=== PATIENT | female | born 1935 | race Caucasian/White ===

== ENCOUNTER 2020-04-06 03:42 | Inpatient (IN) | payer MEDICARE, OTHER ==
[2020-04-06 05:09] LABS: #Basophils 0.1 thou/uL (0.0-0.2); #Eosinphils 0.3 thou/uL (0.0-0.7); #Lymphocytes 1.7 thou/uL (1.20-3.40); #Monocytes 0.7 thou/uL (0.11-0.59); #Neutrophils 7.6 thou/uL (1.40-6.50); %Basophils 0.7 % (0.0-1.0); %Lymphocytes 16.6 % (21.0-51.0); %Monocytes 7.1 % (0.0-10.0); %Neutrophils 72.6 % (42.0-75.0); Hemoglobin 12.3 g/dL (12.0-16.0); Mean Corpuscular HGB CONC 33.1 g/dL (32.0-36.0); Mean Corpuscular Hemoglobin 34.1 pg (27.0-31.0); Mean Platelet Volume 8.9 fL (7.4-10.4); Platelet Count 222 thou/uL (130-400); RBC Distribution Width 13.4 % (11.5-14.5); Red Blood Cell (RBC) Count 3.62 mill/uL (4.20-5.40); White Blood Cell (WBC) Count 10.4 thou/uL (4.8-10.8)
[2020-04-06] MEDS ORDERED: methylPREDNISolone Sod Succ/PF 125 MG/2 ML VIAL ONE (05:13)
[2020-04-06 05:41] LABS: ALT (SGPT) 20 U/L (8-55); AST (SGOT) 34 U/L (5-34); Albumin 3.6 g/dL (3.4-4.8); Alkaline Phosphatase 96 U/L (40-110); Anion Gap 14 mmol/L (10-20); BUN (Urea Nitrogen) 33 mg/dL (9.8-20.1); Bilirubin, Total 0.4 mg/dL (0.2-1.2); Calc. Creatinine Clearance 0 mL/min (70-130); Calcium 8.9 mg/dL (7.8-10.44); Carbon Dioxide 19 mmol/L (23-31); Chloride 109 mmol/L (98-107); Estimated GFR-MDRD 27; Globulin 2.8 g/dL (2.4-3.5); Glucose 118 mg/dL (83-110); Potassium 6.2 mmol/L (3.5-5.1); Protein, Total 6.4 g/dL (6.0-8.3); Sodium 136 mmol/L (136-145)
[2020-04-06] MEDS ORDERED: Insulin Regular 300 UNITS/3 ML VIAL ONE (06:00)
[2020-04-06] MEDS ORDERED: Sodium Bicarb 50 MEQ/50 ML Abboject 8.4% SYRINGE ONE ×2 (06:00→06:02)
[2020-04-06] MEDS ORDERED: Aspirin Chewable 81 MG TAB ONE (06:00)
[2020-04-06] MEDS ORDERED: Calcium Gluc 4.6 MEQ/10 ML (100 MG/ML) ONE (06:00)
[2020-04-06] MEDS ORDERED: Furosemide 40 MG/4 ML VIAL ONE (06:01)
[2020-04-06] MEDS ORDERED: Dextrose 50% Abboject 50 ML SYRINGE ONE (06:01)
[2020-04-06] MEDS ORDERED: Calcium Chloride 1 GM/10 ML Abboject SYRINGE ONE (06:02)
[2020-04-06 06:05] LABS: CKMB 1.3 ng/mL (0-6.6)
[2020-04-06] MEDS ORDERED: Albuterol Sulfate 1.25 MG/3 ML NEB ONE ×2 (06:06→06:07)
--- NOTE | 2020-04-06 07:55 | RAD ---
RADIOGRAPH CHEST 1 VIEW: DATE: 04/06/2020 TIME: 4:36 AM HISTORY: 84-year-old female with sudden onset dyspnea COMPARISON: 07/14/2007 FINDINGS: New finding of small bilateral pleural effusions. Haziness at bilateral lung bases. Prominent interst itial markings throughout the rest of the lungs, minimally greater than prior study. No pneumothorax. New left subclavian dual lead pacemaker. No cardiomegaly. IMPRESSION: Small bilateral pleural effusions.
[2020-04-06 08:12] LABS: Anion Gap 13 mmol/L (10-20); BUN (Urea Nitrogen) 31 mg/dL (9.8-20.1); Calc. Creatinine Clearance 0 mL/min (70-130); Carbon Dioxide 20 mmol/L (23-31); Chloride 110 mmol/L (98-107); Estimated GFR-MDRD 27; Glucose 123 mg/dL (83-110); Sodium 138 mmol/L (136-145)
[2020-04-06 08:17] LABS: Troponin I 0.069 ng/mL (< 0.028)
[2020-04-06] MEDS ORDERED: Acetaminophen 325 MG TAB PO PRN (09:00)
[2020-04-06 10:44] VITALS: BMI 23.4
[2020-04-06] MEDS: Amlodipine 10 MG TAB PO SCH (11:19)
[2020-04-06] MEDS: hydrALAZINE 25 MG TAB PO SCH ×2 (11:19→22:19)
[2020-04-06] MEDS: Heparin 5,000 UNITS/ML VIAL SC SCH ×3 (11:20→22:19)
[2020-04-06] MEDS ORDERED: Dextrose 50% Abboject 50 ML SYRINGE SLOW IVP PRN (11:28)
[2020-04-06] MEDS ORDERED: Dextrose 5% in Water 1,000 ML IV PRN (11:28)
[2020-04-06 11:53] LABS: Troponin I 0.047 ng/mL (< 0.028)
--- NOTE | 2020-04-06 12:10 | HP ---
CHIEF COMPLAINT: Shortness of breath. HISTORY OF PRESENT ILLNESS: The patient is an 84-year-old female with past medical history of sinus bradycardia, status post pacemaker placement, COPD with emphysema, GERD, esophageal stricture, hypertension, and diabetes mellitus type 2, who uses oxygen intermittently at home for COPD. The patient was staying with her daughter for the last few days. She started experiencing shortness of breath earlier today. The patient has a chronic cough that has not changed and she did not complain of any fever or chest pain. Her daughter reported that the patient became short of breath while lying down in bed and the episode was sudden. In the ER, she was found to be hypoxic and required 3 L of oxygen to maintain oxygen saturations greater than 90%. Her chest x-ray revealed some vascular congestion with small effusions. The patient does report chronic edema of her lower extremities. She denies any history of congestive heart failure. Her laboratory studies revealed elevated BNP and hyperkalemia. She was given Lasix in the ER. REVIEW OF SYSTEMS: Negative except as noted in HPI. PAST MEDICAL HISTORY: As noted above. PAST SURGICAL HISTORY: Includes; 1. Hysterectomy. 2. Pacemaker placement. 3. Cholecystectomy. 4. Hernia repair. 5. Cataract surgery. 6. Skin cancer removal. SOCIAL HISTORY: The patient is a current smoker and has been so for 70 years. She denies illicit drug use or alcohol use. ALLERGIES: THE PATIENT IS ALLERGIC TO CIPROFLOXACIN, CODEINE, AND IODINE. PHYSICAL EXAMINATION: GENERAL: The patient is alert and oriented. HEENT: Head; normocephalic, atraumatic. Extraocular muscles intact. NECK: Supple. CHEST: Auscultation reveals crackles at the bases bilaterally. CARDIOVASCULAR: Revealed normal S1, S2. No murmurs, rubs, or gallops. ABDOMEN: Soft, nontender, nondistended. EXTREMITIES: Revealed +1 pitting edema. ASSESSMENT: 1. New-onset congestive heart failure. 2. Chronic COPD. 3. [id number] respiratory failure with hypoxia. 4. Hyperkalemia. 5. Elevated creatinine level, which could represent acute kidney injury. No baseline to compare. 6. Elevated troponin. PLAN: The patient will be placed in telemetry. We will initiate management for CHF with low-salt diet, 1800 mL fluid restriction, strict intake and output, Bumex 1 mg IV twice daily. We will check echocardiogram. We will continue carvedilol and hold lisinopril due to the elevated creatinine level and hyperkalemia. Her elevated troponin level could be related to her CHF and demand ischemia. The patient is denying any chest pain. We will follow echocardiogram results to assess any wall motion abnormalities and the degree of her ejection fraction. Her COPD appears to be stable and chronic and we will continue with nebulizer treatments. Heparin for DVT prophylaxis. PT and OT evaluation. Job ID: [id number]
[2020-04-06] MEDS: cloNIDine 0.1 MG TAB PO SCH ×2 (12:16→22:18)
[2020-04-06] MEDS: Bumetanide 1 MG/4 ML VIAL IVP SCH (14:51)
[2020-04-06 16:30] LABS: SARS-CoV-2 MS2 Positive; SARS-CoV-2 N Gene Negative; SARS-CoV-2 S Gene Negative; SARS-CoV-2 by NAA Not Detected (NotDetected); SARS-CoV-2 orf1ab Negative
[2020-04-06] MEDS: Albuterol 200 PUFF (6.7GM INHALER) INH SCH ×3 (16:56→22:22)
[2020-04-06] MEDS: Carvedilol 25 MG TAB PO SCH (17:33)
[2020-04-06] MEDS: HumaLOG 300 UNITS/3 ML VIAL SC PRN (17:34)
[2020-04-06] MEDS ORDERED: Simvastatin 20 MG TAB PO SCH (21:00)
[2020-04-06] MEDS: Melatonin 3 MG TAB PO PRN (22:19)
[2020-04-06] MEDS: Atorvastatin Calcium 10 MG TAB PO SCH (22:19)
[2020-04-07] MEDS: Albuterol 200 PUFF (6.7GM INHALER) INH SCH ×7 (01:51→23:33)
[2020-04-07 04:31] LABS: #Lymphocytes 1.3 thou/uL (1.20-3.40); #Monocytes 0.5 thou/uL (0.11-0.59); #Neutrophils 14.5 thou/uL (1.40-6.50); %Basophils 0.1 % (0.0-1.0); %Eosinophils 0.1 % (0.0-10.0); %Lymphocytes 8.1 % (21.0-51.0); %Monocytes 3.1 % (0.0-10.0); %Neutrophils 88.7 % (42.0-75.0); Hemoglobin 10.4 g/dL (12.0-16.0); Mean Corpuscular HGB CONC 32.9 g/dL (32.0-36.0); Mean Corpuscular Hemoglobin 34.1 pg (27.0-31.0); Mean Platelet Volume 8.8 fL (7.4-10.4); Platelet Count 199 thou/uL (130-400); RBC Distribution Width 13.4 % (11.5-14.5); Red Blood Cell (RBC) Count 3.05 mill/uL (4.20-5.40); White Blood Cell (WBC) Count 16.4 thou/uL (4.8-10.8)
[2020-04-07 05:35] LABS: Anion Gap 13 mmol/L (10-20); BUN (Urea Nitrogen) 32 mg/dL (9.8-20.1); Calc. Creatinine Clearance 22 mL/min (70-130); Calcium 8.3 mg/dL (7.8-10.44); Carbon Dioxide 21 mmol/L (23-31); Chloride 108 mmol/L (98-107); Estimated GFR-MDRD 27; Glucose 162 mg/dL (83-110); Potassium 5.3 mmol/L (3.5-5.1); Sodium 137 mmol/L (136-145)
[2020-04-07] MEDS: Levothyroxine Sodium 75 MCG TAB PO SCH (06:22)
[2020-04-07] MEDS: HumaLOG 300 UNITS/3 ML VIAL SC PRN ×2 (06:22→11:25)
[2020-04-07] MEDS: Bumetanide 1 MG/4 ML VIAL IVP SCH ×2 (07:46→15:00)
[2020-04-07] MEDS ORDERED: FLU VACC QS2020-21(65YR UP)/PF 240 MCG/0.7 ML SYRINGE IM ONE (09:00)
[2020-04-07] MEDS: Amlodipine 10 MG TAB PO SCH (10:40)
[2020-04-07] MEDS: cloNIDine 0.1 MG TAB PO SCH (10:40)
[2020-04-07] MEDS: Carvedilol 25 MG TAB PO SCH ×2 (10:40→17:20)
[2020-04-07] MEDS: hydrALAZINE 25 MG TAB PO SCH ×3 (10:41→21:23)
[2020-04-07] MEDS: Heparin 5,000 UNITS/ML VIAL SC SCH ×3 (10:41→21:22)
--- NOTE | 2020-04-07 15:16 | PDOC.HOSPP ---
- Subjective Encounter Date: 04/07/20 Encounter Time: 15:15 Subjective: f/u for CHF exacerbation with EF 60-65% on Bumex IV. Receiving O2 @ 3L/min NC. - Objective Vital Signs & Weight: Vital Signs (12 hours) Temp Pulse Resp BP BP Pulse Ox 04/07/20 11:16 97.8 F 66 20 137/60 96 04/07/20 10:41 70 04/07/20 10:40 70 04/07/20 07:24 98 F 70 20 138/60 96 04/07/20 04:00 97.5 F L 69 16 117/56 L 95 Weight Admit Weight 132 lb 6 oz Weight 132 lb 6 oz I&O: 04/06/20 04/07/20 04/08/20 06:59 06:59 06:59 Intake Total 600 560 Output Total 750 700 Balance -150 -140 Result Diagrams: 04/07/20 04:08 04/07/20 04:08 Additional Labs: Accuchecks 04/07/20 04/07/20 04/06/20 11:24 05:59 22:19 POC Glucose 158 H 172 H 156 H 04/06/20 17:32 POC Glucose 184 H Laboratory Tests 04/06/20 04/06/20 04/06/20 04:40 04:40 04:40 WBC Hgb Potassium 6.2 H Creatinine 1.78 H Troponin I 0.079 H B-Natriuretic Peptide 1226.5 H SARS-CoV-2 (PCR) 04/06/20 04/06/20 04/06/20 04:40 06:47 07:47 WBC 10.4 Hgb 12.3 Potassium Creatinine Troponin I 0.069 H B-Natriuretic Peptide SARS-CoV-2 (PCR) Not Detected 04/06/20 04/06/20 07:47 11:00 WBC Hgb Potassium 5.0 Creatinine 1.77 H Troponin I 0.047 H B-Natriuretic Peptide SARS-CoV-2 (PCR) EKG Reviewed by me: Yes (Tele - SR) Hospitalist ROS - Medication Medications: Active Medications Generic Name Dose Route Start Last Admin Trade Name Freq PRN Reason Stop Dose Admin Albuterol Sulfate 2 puff 04/06/20 14:30 04/07/20 14:07 Albuterol 200 Puff (6.7gm Inhaler) INH 04/12/20 18:00 Not Given [id number] ERICA Amlodipine Besylate 10 mg 04/06/20 09:00 04/07/20 10:40 Amlodipine 10 Mg Tab PO 10 mg DAILY ERICA Administration Atorvastatin Calcium 10 mg 04/06/20 21:00 04/06/20 22:19 Atorvastatin Calcium 10 Mg Tab PO 10 mg HS ERICA Administration Bumetanide 1 mg 04/06/20 14:00 04/07/20 07:46 Bumetanide 1 Mg/4 Ml Vial IVP 1 mg 0600,1400 ERICA Administration Carvedilol 25 mg 04/06/20 17:00 04/07/20 10:40 Carvedilol 25 Mg Tab PO 25 mg BID-WM ERICA Administration Clonidine 0.1 mg 04/06/20 09:00 04/07/20 10:40 Clonidine 0.1 Mg Tab PO 0.1 mg BID ERICA Administration Heparin Sodium (Porcine) 5,000 units 04/06/20 09:00 04/07/20 10:41 Heparin 5,000 Units/Ml Vial SC 5,000 units TID ERICA Administration Hydralazine HCl 25 mg 04/06/20 09:00 04/07/20 10:41 Hydralazine 25 Mg Tab PO 25 mg BID ERICA Administration Insulin Human Lispro 0 units 04/06/20 11:28 04/07/20 11:25 Humalog 300 Units/3 Ml Vial SC 2 unit .MODERATE SLIDING SC PRN Administration Moderate Correctional Scale Levothyroxine Sodium 75 mcg 04/07/20 06:00 04/07/20 06:22 Levothyroxine Sodium 75 Mcg Tab PO 75 mcg 0600 ERICA Administration Melatonin 3 mg 04/06/20 21:31 04/06/20 22:19 Melatonin 3 Mg Tab PO 3 mg HS PRN Administration Insomnia Sodium Chloride 10 ml 04/06/20 21:00 04/07/20 10:41 Flush - Normal Saline 10 Ml Syringe IVF 10 ml Q12HR ERICA Administration - Exam General Appearance: NAD, awake alert Eye: PERRL, anicteric sclera ENT: normocephalic atraumatic, no oropharyngeal lesions Neck: supple, symmetric, no JVD, no thyromegaly, no lymphadenopathy Heart: RRR, no gallops, no rubs, normal peripheral pulses Heart - other findings: S1, S2 Gastrointestinal: soft, non-tender, non-distended, normal bowel sounds, no palpable masses Extremities: no cyanosis, no clubbing, 1+ LE edema Skin: normal turgor, no lesions Neurological: cranial nerve grossly intact, no new deficit Musculoskeletal: normal tone, generalized weakness Psychiatric: normal affect, A&O x 3 Hosp A/P (1) Acute exacerbation of CHF (congestive heart failure) Code(s): I50.9 - HEART FAILURE, UNSPECIFIED Status: Acute Qualifiers: Heart failure type: diastolic Qualified Code(s): I50.33 - Acute on chronic diastolic (congestive) heart failure Plan: Continue Bumex IV, serial I/O's, daily weight, med mgmt (2) Chronic respiratory failure with hypoxia Code(s): J96.11 - CHRONIC RESPIRATORY FAILURE WITH HYPOXIA Status: Chronic Plan: Continue O2 @ 3L/min NC (3) Hyperkalemia Code(s): E87.5 - HYPERKALEMIA Status: Acute Plan: Improved, continue Bumex, serial K+ monitoring (4) Acute kidney injury superimposed on CKD Code(s): N17.9 - ACUTE KIDNEY FAILURE, UNSPECIFIED; N18.9 - CHRONIC KIDNEY DISEASE, UNSPECIFIED Status: Acute Plan: Avoid nephrotoxic meds and limit contrast exposure, serial creatinine (5) Type 2 myocardial infarction Code(s): I21.A1 - MYOCARDIAL INFARCTION TYPE 2 Status: Acute Plan: Suspect due to demand ischemia, continue med mgmt (6) HTN (hypertension) Code(s): I10 - ESSENTIAL (PRIMARY) HYPERTENSION Status: Chronic Qualifiers: Hypertension type: essential hypertension Qualified Code(s): I10 - Essential (primary) hypertension Plan: Continue home BP regimen, serial BP monitoring (7) Tobacco abuse Code(s): Z72.0 - TOBACCO USE Status: Chronic Plan: Smoking cessation resources (8) DM II (diabetes mellitus, type II), controlled Code(s): E11.9 - TYPE 2 DIABETES MELLITUS WITHOUT COMPLICATIONS Status: Acute - Plan plan discussed w/ family, PT/OT, social work manager, respiratory therapy, out of bed/ambulate, DVT proph w/SCDs Stable currently Continue Bumex IV another 24h OOB with PT Resume home BP regimen ASA 81mg daily AM lab: BMP, CBC Likely home in 24h
[2020-04-07] MEDS ORDERED: Aspirin 81 mg Enteric Coated Tablet PO SCH (16:00)
[2020-04-07] MEDS: Metoclopramide HCl 10 MG TAB PO SCH ×2 (17:20→21:21)
[2020-04-07] MEDS: Mirtazapine 30 MG TAB PO SCH (21:21)
[2020-04-07] MEDS: cloNIDine 0.2 MG TAB PO SCH (21:21)
[2020-04-07] MEDS: Melatonin 3 MG TAB PO PRN (21:22)
[2020-04-07] MEDS: Atorvastatin Calcium 10 MG TAB PO SCH (21:22)
[2020-04-07] MEDS ORDERED: Sodium Chloride 0.9% 250 ML IV SCH (23:45)
[2020-04-08 01:01] LABS: Hemoglobin 10.8 g/dL (12.0-16.0)
[2020-04-08] MEDS ORDERED: methylPREDNISolone Sod Succ/PF 125 MG/2 ML VIAL ONE (01:21)
[2020-04-08] MEDS ORDERED: Furosemide 20 MG/2 ML VIAL ONE (03:19)
[2020-04-08 06:31] LABS: Anion Gap 15 mmol/L (10-20); BUN (Urea Nitrogen) 39 mg/dL (9.8-20.1); Calc. Creatinine Clearance 23 mL/min (70-130); Calcium 8.4 mg/dL (7.8-10.44); Carbon Dioxide 21 mmol/L (23-31); Chloride 104 mmol/L (98-107); Estimated GFR-MDRD 27; Glucose 173 mg/dL (83-110); Potassium 5.2 mmol/L (3.5-5.1); Sodium 135 mmol/L (136-145)
[2020-04-08] MEDS: Bumetanide 1 MG/4 ML VIAL IVP SCH ×2 (06:44→14:27)
[2020-04-08] MEDS: HumaLOG 300 UNITS/3 ML VIAL SC PRN ×2 (06:44→12:32)
[2020-04-08] MEDS: Levothyroxine Sodium 75 MCG TAB PO SCH (06:44)
[2020-04-08 06:47] LABS: #Eosinphils 0.1 thou/uL (0.0-0.7); #Lymphocytes 1.5 thou/uL (1.20-3.40); #Monocytes 0.3 thou/uL (0.11-0.59); #Neutrophils 11.5 thou/uL (1.40-6.50); %Basophils 0.1 % (0.0-1.0); %Eosinophils 0.4 % (0.0-10.0); %Lymphocytes 10.9 % (21.0-51.0); %Neutrophils 86.6 % (42.0-75.0); Mean Corpuscular HGB CONC 32.2 g/dL (32.0-36.0); Mean Corpuscular Hemoglobin 33.5 pg (27.0-31.0); Mean Platelet Volume 9.9 fL (7.4-10.4); Platelet Count 188 thou/uL (130-400); RBC Distribution Width 13.6 % (11.5-14.5); Red Blood Cell (RBC) Count 3.57 mill/uL (4.20-5.40); White Blood Cell (WBC) Count 13.3 thou/uL (4.8-10.8)
[2020-04-08] MEDS: Albuterol 200 PUFF (6.7GM INHALER) INH SCH ×5 (07:00→22:15)
[2020-04-08 07:04] LABS: Chloride 105 mmol/L (98-107); Glucose 114 mg/dL (83-110); Sodium 135 mmol/L (136-145)
[2020-04-08 07:55] LABS: Anion Gap 14 mmol/L (10-20); BUN (Urea Nitrogen) 36 mg/dL (9.8-20.1); Calc. Creatinine Clearance 23 mL/min (70-130); Carbon Dioxide 21 mmol/L (23-31); Estimated GFR-MDRD 28; Magnesium 1.7 mg/dL (1.6-2.6)
--- NOTE | 2020-04-08 08:07 | RAD ---
CHEST 1 VIEW: Date: 04/08/2020 INDICATION: History of chest pain. COMPARISON: Prior exam dated 04/06/2020. FINDINGS: Dual lead pacemaker is unchanged. Mild cardiomegaly persists. Bilateral infrahilar air space opacitie s persist. Small right and tiny left pleural effusions are similar appearing. No pneumothorax is evid ent. IMPRESSION: Stable examination to the prior dated 04/06/2020. POS: BH
[2020-04-08 08:15] LABS: Lactic Acid 0.9 mmol/L (0.5-2.2)
[2020-04-08] MEDS: Estradiol 1 MG TAB PO SCH (08:48)
[2020-04-08] MEDS: Alogliptin 6.25 MG TAB PO SCH (08:51)
[2020-04-08] MEDS: Metoclopramide HCl 10 MG TAB PO SCH ×4 (08:53→20:43)
[2020-04-08] MEDS: Heparin 5,000 UNITS/ML VIAL SC SCH ×3 (08:54→20:43)
[2020-04-08] MEDS ORDERED: Lisinopril 20 MG TAB PO SCH (09:00)
[2020-04-08] MEDS: Carvedilol 25 MG TAB PO SCH ×2 (09:18→17:56)
[2020-04-08 10:49] LABS: CKMB 1.1 ng/mL (0-6.6)
--- NOTE | 2020-04-08 11:37 | PDOC.HOSPP ---
- Subjective Encounter Date: 04/08/20 Encounter Time: 11:15 Subjective: f/u for CHF exacerbation on IV Bumex. Feels better overall but had episode of hypotension overnight receiving NS bolus 500ml total. - Objective Vital Signs & Weight: Vital Signs (12 hours) Temp Pulse Resp BP BP Pulse Ox 04/08/20 08:00 98 F 65 21 H 117/57 L 92 L 04/08/20 05:36 97.7 F 95 16 113/56 L 97 04/08/20 03:13 64 143/60 H 04/08/20 02:03 91/48 L 04/08/20 01:12 98/50 L 04/08/20 00:43 82 106/55 L 04/07/20 23:41 97.8 F 65 16 90/44 L 92 L Weight Admit Weight 132 lb 6 oz Weight 132 lb 6 oz I&O: 04/07/20 04/08/20 04/09/20 06:59 06:59 06:59 Intake Total 600 1865 360 Output Total 750 2200 Balance -150 -335 360 Result Diagrams: 04/08/20 05:18 04/08/20 03:32 Additional Labs: Accuchecks 04/08/20 04/08/20 04/07/20 10:49 05:56 21:07 POC Glucose 287 H 185 H 155 H Laboratory Tests 04/06/20 04/06/20 04/06/20 04:40 04:40 04:40 WBC Hgb Potassium 6.2 H BUN Creatinine 1.78 H Magnesium Troponin I 0.079 H B-Natriuretic Peptide 1226.5 H SARS-CoV-2 (PCR) 04/06/20 04/06/20 04/06/20 04:40 06:47 07:47 WBC 10.4 Hgb 12.3 Potassium BUN Creatinine Magnesium Troponin I 0.069 H B-Natriuretic Peptide SARS-CoV-2 (PCR) Not Detected 04/06/20 04/06/20 04/07/20 07:47 11:00 04:08 WBC 16.4 H Hgb 10.4 L Potassium 5.0 BUN Creatinine 1.77 H Magnesium Troponin I 0.047 H B-Natriuretic Peptide SARS-CoV-2 (PCR) 04/08/20 04/08/20 04/08/20 00:56 00:56 00:56 WBC Hgb 10.8 L Potassium 5.0 BUN 36 H Creatinine 1.75 H Magnesium 1.7 Troponin I 0.056 H B-Natriuretic Peptide SARS-CoV-2 (PCR) Radiology Reviewed by me: Yes (PCXR - patchy infiltrates, chronic changes) EKG Reviewed by me: Yes (Tele - SR) Hospitalist ROS - Medication Medications: Active Medications Generic Name Dose Route Start Last Admin Trade Name Freq PRN Reason Stop Dose Admin Albuterol Sulfate 2 puff 04/06/20 14:30 04/08/20 10:53 Albuterol 200 Puff (6.7gm Inhaler) INH 04/12/20 18:00 2 puff [id number] ERICA Administration Alogliptin Benzoate 6.25 mg 04/08/20 09:00 04/08/20 08:51 Alogliptin 6.25 Mg Tab PO 6.25 mg DAILY ERICA Administration Amlodipine Besylate 10 mg 04/06/20 09:00 04/07/20 10:40 Amlodipine 10 Mg Tab PO 10 mg DAILY ERICA Administration Atorvastatin Calcium 10 mg 04/06/20 21:00 04/07/20 21:22 Atorvastatin Calcium 10 Mg Tab PO 10 mg HS ERICA Administration Bumetanide 1 mg 04/06/20 14:00 04/08/20 06:44 Bumetanide 1 Mg/4 Ml Vial IVP 1 mg 0600,1400 ERICA Administration Carvedilol 25 mg 04/06/20 17:00 04/08/20 09:18 Carvedilol 25 Mg Tab PO 25 mg BID-WM ERICA Administration Clonidine 0.2 mg 04/07/20 21:00 04/07/20 21:21 Clonidine 0.2 Mg Tab PO 0.2 mg BID ERICA Administration Estradiol 0.5 mg 04/08/20 09:00 04/08/20 08:48 Estradiol 1 Mg Tab PO 0.5 mg DAILY ERICA Administration Heparin Sodium (Porcine) 5,000 units 04/06/20 09:00 04/08/20 08:54 Heparin 5,000 Units/Ml Vial SC 5,000 units TID ERICA Administration Hydralazine HCl 25 mg 04/07/20 21:00 04/07/20 21:23 Hydralazine 25 Mg Tab PO Not Given BID ERICA Insulin Human Lispro 0 units 04/06/20 11:28 04/08/20 06:44 Humalog 300 Units/3 Ml Vial SC 2 unit .MODERATE SLIDING SC PRN Administration Moderate Correctional Scale Levothyroxine Sodium 75 mcg 04/07/20 06:00 04/08/20 06:44 Levothyroxine Sodium 75 Mcg Tab PO 75 mcg 0600 ERICA Administration Metoclopramide HCl 5 mg 04/07/20 16:30 04/08/20 08:53 Metoclopramide Hcl 10 Mg Tab PO 5 mg 0730,1130,1630,2100 ERICA Administration Mirtazapine 30 mg 04/07/20 21:00 04/07/20 21:21 Mirtazapine 30 Mg Tab PO 30 mg HS ERICA Administration Sodium Chloride 10 ml 04/06/20 21:00 04/07/20 21:21 Flush - Normal Saline 10 Ml Syringe IVF 10 ml Q12HR ERICA Administration - Exam General Appearance: NAD, awake alert Eye: PERRL, anicteric sclera ENT: normocephalic atraumatic, no oropharyngeal lesions Neck: supple, symmetric, no JVD, no thyromegaly, no lymphadenopathy Heart: RRR, no gallops, no rubs, normal peripheral pulses Heart - other findings: S1, S2 Respiratory: no tachypnea Respiratory - other findings: occ rhonchi, diminished bilat, mild exp wheeze Gastrointestinal: soft, non-tender, non-distended, normal bowel sounds, no palpable masses Extremities: no cyanosis, no clubbing, no edema Skin: normal turgor Neurological: cranial nerve grossly intact, no new deficit Musculoskeletal: normal tone, generalized weakness Psychiatric: normal affect, A&O x 3 Hosp A/P (1) Acute exacerbation of CHF (congestive heart failure) Code(s): I50.9 - HEART FAILURE, UNSPECIFIED Status: Acute Qualifiers: Heart failure type: diastolic Qualified Code(s): I50.33 - Acute on chronic diastolic (congestive) heart failure Plan: Continue Bumex IV another 24h and monitor I/O's, daily weight (2) Chronic respiratory failure with hypoxia Code(s): J96.11 - CHRONIC RESPIRATORY FAILURE WITH HYPOXIA Status: Chronic Plan: Continue O2 supplementation, remains on home O2 (3) Hyperkalemia Code(s): E87.5 - HYPERKALEMIA Status: Acute Plan: Mild elevation, continue Bumex IV, serial monitoring (4) Acute kidney injury superimposed on CKD Code(s): N17.9 - ACUTE KIDNEY FAILURE, UNSPECIFIED; N18.9 - CHRONIC KIDNEY DISEASE, UNSPECIFIED Status: Acute Plan: Avoid nephrotoxic meds and limit contrast exposure (5) Type 2 myocardial infarction Code(s): I21.A1 - MYOCARDIAL INFARCTION TYPE 2 Status: Acute (6) HTN (hypertension) Code(s): I10 - ESSENTIAL (PRIMARY) HYPERTENSION Status: Chronic Qualifiers: Hypertension type: essential hypertension Qualified Code(s): I10 - Essential (primary) hypertension (7) Tobacco abuse Code(s): Z72.0 - TOBACCO USE Status: Chronic (8) DM II (diabetes mellitus, type II), controlled Code(s): E11.9 - TYPE 2 DIABETES MELLITUS WITHOUT COMPLICATIONS Status: Acute - Plan plan discussed w/ family, continue antibiotics Stable currently Continue Bumex IV another 24h OOB with PT Resume home BP regimen ASA 81mg daily Monitor BP trend AM lab: BMP, CBC Likely home in 24h
[2020-04-08] MEDS: hydrALAZINE 25 MG TAB PO SCH (12:20)
[2020-04-08] MEDS: cloNIDine 0.2 MG TAB PO SCH (12:20)
[2020-04-08] MEDS: Amlodipine 10 MG TAB PO SCH (12:20)
--- NOTE | 2020-04-08 18:02 | EKG ---
Test Reason : STAT Blood Pressure : / mmHG Vent. Rate : 065 BPM Atrial Rate : 039 BPM P-R Int : 000 ms QRS Dur : 150 ms QT Int : 440 ms P-R-T Axes : 000 -86 066 degrees QTc Int : 457 ms Ventricular-paced rhythm Abnormal ECG When compared with ECG of 06-APR-2020 03:55, (Unconfirmed) Electronic ventricular pacemaker has replaced Sinus rhythm Confirmed by DR. Sanjay ONEAL (3) on 04/08/2020 6:02:20 PM Referred By: ROBY Confirmed By:DR. Sanjay ONEAL
[2020-04-08] MEDS: Atorvastatin Calcium 10 MG TAB PO SCH (20:42)
[2020-04-08] MEDS: Mirtazapine 30 MG TAB PO SCH (20:43)
[2020-04-08] MEDS ORDERED: Amlodipine 10 MG TAB PO SCH (21:00)
[2020-04-08] MEDS ORDERED: hydrALAZINE 25 MG TAB PO SCH (21:00)
[2020-04-08] MEDS ORDERED: cloNIDine 0.2 MG TAB PO SCH (21:00)
[2020-04-09] MEDS ORDERED: Melatonin 3 MG TAB PO PRN (00:18)
[2020-04-09] MEDS: Albuterol 200 PUFF (6.7GM INHALER) INH SCH ×3 (02:14→10:50)
[2020-04-09 04:36] VITALS: TEMP 97.9
[2020-04-09 05:25] LABS: #Monocytes 0.8 thou/uL (0.11-0.59); #Neutrophils 10.4 thou/uL (1.40-6.50); %Eosinophils 0.2 % (0.0-10.0); %Monocytes 6.2 % (0.0-10.0); %Neutrophils 78.5 % (42.0-75.0); Hemoglobin 10.7 g/dL (12.0-16.0); Mean Corpuscular HGB CONC 34.2 g/dL (32.0-36.0); Mean Corpuscular Hemoglobin 35.1 pg (27.0-31.0); Mean Platelet Volume 8.9 fL (7.4-10.4); Platelet Count 199 thou/uL (130-400); RBC Distribution Width 12.9 % (11.5-14.5); Red Blood Cell (RBC) Count 3.04 mill/uL (4.20-5.40); White Blood Cell (WBC) Count 13.3 thou/uL (4.8-10.8)
[2020-04-09 05:43] LABS: Anion Gap 12 mmol/L (10-20); BUN (Urea Nitrogen) 42 mg/dL (9.8-20.1); Calc. Creatinine Clearance 22 mL/min (70-130); Calcium 8.6 mg/dL (7.8-10.44); Carbon Dioxide 28 mmol/L (23-31); Chloride 101 mmol/L (98-107); Estimated GFR-MDRD 26; Glucose 140 mg/dL (83-110); Potassium 4.6 mmol/L (3.5-5.1); Sodium 136 mmol/L (136-145)
[2020-04-09] MEDS: Levothyroxine Sodium 75 MCG TAB PO SCH (07:46)
[2020-04-09] MEDS: Bumetanide 1 MG/4 ML VIAL IVP SCH (07:46)
[2020-04-09] MEDS: Metoclopramide HCl 10 MG TAB PO SCH ×2 (08:21→11:05)
[2020-04-09] MEDS: Estradiol 1 MG TAB PO SCH (08:22)
[2020-04-09] MEDS: Alogliptin 6.25 MG TAB PO SCH (08:22)
[2020-04-09] MEDS: Heparin 5,000 UNITS/ML VIAL SC SCH (08:23)
[2020-04-09] MEDS: Carvedilol 25 MG TAB PO SCH (08:23)
[2020-04-09] MEDS: HumaLOG 300 UNITS/3 ML VIAL SC PRN (11:08)
[2020-04-09 12:35] VITALS: BP 157/69
--- NOTE | 2020-04-10 01:38 | DIS ---
DATE OF ADMISSION: 04/06/2020 DATE OF DISCHARGE: 04/09/2020 DISCHARGE DIAGNOSES: 1. Acute on chronic diastolic congestive heart failure exacerbation with preserved ejection fraction of 60% to 65%. 2. Chronic hypoxic respiratory failure on chronic oxygen supplementation at 2 L/minute by nasal cannula. 3. Hyperkalemia, resolved. 4. Acute kidney injury on chronic kidney disease, improved. 5. Type 2 myocardial infarction secondarily to demand ischemia. 6. Hypertension, stable. 7. Tobacco abuse, chronic. 8. Diabetes mellitus, type 2. CONSULTATIONS: None. PERTINENT LABORATORY AND X-RAY FINDINGS: Potassium ranged between 4.6 to 6.2. Creatinine ranged between 1.75 to 1.85. Estimated GFR ranged between 26 to 28. Lactic acid level 0.9. Magnesium level 1.7. Troponin I ranged between 0.017 to 0.079. BNP 1227. CBC showed a white blood cell count ranging between 10.4 to 16.4, hemoglobin ranged between 10.4 to 12.3. COVID-19 PCR not detected on 04/06/2020. Portable chest x-ray dated 04/06/2020, showed small bilateral pleural effusions with pulmonary edema. 2D transthoracic echocardiogram dated 04/07/2020, showed ejection fraction of 60% to 65%. Diastolic dysfunction. Mild left atrial enlargement. Moderate mitral regurgitation and moderate to severe tricuspid regurgitation. Portable chest x-ray dated 04/08/2020, showed mild cardiomegaly with bilateral infrahilar airspace opacities. HOSPITAL COURSE: The patient was initially admitted to the telemetry unit after presenting with increased shortness of breath in the context of known emphysema and chronic oxygen supplementation with chest imaging concerning for pulmonary edema. The patient received IV Lasix in the emergency room, transitioning to IV Bumex, and monitored for clinical response. The patient had excellent diuresis during the hospital course with overall stabilization of respiratory status. The patient was maintaining O2 saturations in the mid 90% range on 2 to 3 L/minute by nasal cannula. The patient received general pulmonary supportive management and overall achieved baseline pulmonary functional status by the time of discharge. The patient was noted with mild hyperkalemia at the time of admission, resolving by the time of discharge. 2D transthoracic echocardiogram showed overall preserved ejection fraction of 60% to 65% with diastolic dysfunction noted. I have examined the patient at the time of discharge and discussed followup instructions. The patient verbalizes understanding and agreement, ready for discharge on 04/09/2020. DISCHARGE MEDICATIONS: 1. Multivitamin 1 tablet p.o. daily. 2. Hydralazine 25 mg p.o. at bedtime. 3. Coreg 25 mg p.o. b.i.d. 4. Catapres 0.2 mg p.o. at bedtime. 5. Estradiol 0.5 mg one tablet p.o. daily. 6. Januvia 100 mg p.o. daily. 7. Levothyroxine 75 mcg p.o. daily. 8. Lisinopril 40 mg p.o. at bedtime. 9. Metoclopramide 5 mg p.o. q.i.d. p.r.n. 10. Mirtazapine 30 mg p.o. b.i.d. 11. Norvasc 10 mg p.o. at bedtime. 12. Simvastatin 40 mg p.o. at bedtime. 13. Bumex 0.5 mg p.o. daily. FOLLOWUP: The patient may follow up with her primary care provider, Evin Ye, on 04/16/2020 at 10:15 am. CONDITION ON DISCHARGE: Stable. ACTIVITY: Ad-juanito. DIET: Heart healthy and ADA. CODE STATUS: Full. DISPOSITION: To home, 04/09/2020. TIME SPENT: Total time preparing and coordinating discharge, 36 minutes. Job ID: [id number]
== END 2020-04-09 13:42 | disposition home health service (06) | DRG 280 ==
LOC: ERS 03:42 → ERHOLD 06:12 → 2SE 10:10
PROVIDERS: ADMIT Internal Medicine; ATTEND Internal Medicine
DX: I13.0 Hypertensive heart and chronic kidney disease with heart failure and stage 1 through stage 4 chronic kidney disease, or unspecified chronic kidney disease (principal); I50.33 Acute on chronic diastolic (congestive) heart failure; I21.A1 Myocardial infarction type 2; N17.9 Acute kidney failure, unspecified; J96.11 Chronic respiratory failure with hypoxia; E87.5 Hyperkalemia; F17.210 Nicotine dependence, cigarettes, uncomplicated; E11.22 Type 2 diabetes mellitus with diabetic chronic kidney disease; Z20.828 Contact with and (suspected) exposure to other viral communicable diseases; J43.9 Emphysema, unspecified; F41.9 Anxiety disorder, unspecified; K21.9 Gastro-esophageal reflux disease without esophagitis; K22.2 Esophageal obstruction; F32.9 Major depressive disorder, single episode, unspecified; Z99.81 Dependence on supplemental oxygen; Z95.0 Presence of cardiac pacemaker; Z90.710 Acquired absence of both cervix and uterus; Z88.8 Allergy status to other drugs, medicaments and biological substances; Z79.4 Long term (current) use of insulin; Z79.899 Other long term (current) drug therapy; Z90.49 Acquired absence of other specified parts of digestive tract; N18.9 Chronic kidney disease, unspecified
CPT/HCPCS: 36415; 36416; 71045; 80048; 80053; 82553; 83605; 83735; 83880; 84484; 85025; 87635; 93005; 93010; 93306; 93798; 94640; 96361; 96374; 96375; J1644; J1815; J1940; J2001; J2930; J3490; J7620; U0003